=== PATIENT | female | born 1995 | race Hispanic/Latino ===

== ENCOUNTER 2023-11-15 01:11 | Emergency (ER) | payer MEDICAID, MEDICARE, SELFPAY ==
[~2023-11-15] VITALS: Ht 154.9 cm; Wt 72.4 kg
[2023-11-15] MEDS ORDERED: IBUP80TA PO (01:19)
[2023-11-15] MEDS ORDERED: ACET-683 PO (01:19)
[2023-11-15] MEDS ORDERED: MIGRTAB PO (01:19)
[2023-11-15] MEDS ORDERED: METOCLOPRAMIDE INJ 10MG/2ML VIAL IV ONE (06:30)
[2023-11-15] MEDS ORDERED: ACETAMINOPHEN *IV* 1,000 MG in IV 1 EA IV ONE (06:30)
[2023-11-15] MEDS ORDERED: NS 1,000 ML IV ONE (06:30)
[2023-11-15 07:02] LABS: BASO % 0.2 % (0.0-1.0); HEMATOCRIT 38.9 % (36.0-47.0); HEMOGLOBIN 13.2 g/dl (12.0-15.5); LYMPH # 0.9 10^3/uL (1.5-5.0); LYMPH % 7.4 % (24.0-44.0); MEAN CORPUSCULAR HEMOGLOBIN 33.2 pg (27.0-33.0); MEAN CORPUSCULAR HGB CONC 33.9 g/dl (32.0-36.5); MONO # 0.4 10^3/uL (0.0-0.8); MONO % 3.1 % (2.0-8.0); NEUTROPHILS # 11.4 10^3/uL (1.5-8.5); PLATELET COUNT, AUTOMATED 255 10^3/uL (150-450); RED BLOOD COUNT 3.97 10^6/uL (4.00-5.40); WHITE BLOOD COUNT 12.8 10^3/uL (4.0-10.0)
[2023-11-15 07:20] LABS: BLOOD UREA NITROGEN 10 MG/DL (9-23); CALCIUM LEVEL 8.5 MG/DL (8.5-10.1); CARBON DIOXIDE LEVEL 23 MMOL/L (20-31); CHLORIDE LEVEL 106 MMOL/L (98-107); CREATININE FOR GFR 0.65 MG/DL (0.55-1.30); GLOMERULAR FILTRATION RATE > 60.0 (>60); GLUCOSE, FASTING 107 MG/DL (60-100); POTASSIUM SERUM 4.2 MMOL/L (3.5-5.1); SODIUM LEVEL 135 MMOL/L (136-145)
[2023-11-15 07:25] LABS: RSV AMPLIFICATION NEGATIVE (NEGATIVE)
[2023-11-15 08:04] VITALS: BP 125/67; TEMP 98.5; O2SAT 98
[2023-11-15] MEDS ORDERED: KETOROLAC 30 MG/ML 1ML VIAL IV ONE (09:00)
== END 2023-11-15 08:14 | disposition home or self-care (01) ==
LOC: M ED 01:11
DX: G44.209 Tension-type headache, unspecified, not intractable (principal)
CPT/HCPCS: 80048; 84702; 85025; 87631; 96374; 96375; 99284; J0131; J1885; J2765

== ENCOUNTER → 2024-07-11 | Outpatient (REF) ==
[~2024-07-11] MED LIST: ACET-683 PO; IBUP80TA PO; MIGRTAB PO
== END ==
LOC: M EMP 13:13
PROVIDERS: ATTEND Family Medicine
DX: Z11.52 Encounter for screening for COVID-19 (principal)

== ENCOUNTER → 2024-07-26 | Outpatient (REF) | LOC: M EMP 07:54 | PROVIDERS: ATTEND Family Medicine | DX: Z11.52 Encounter for screening for COVID-19 (principal) ==

== ENCOUNTER 2025-11-01 08:32 | Emergency (ER) | payer MEDICAID, OTHER ==
[~2025-11-01] VITALS: Ht 157.5 cm; Wt 89.7 kg
[2025-11-01 09:09] LABS: BASO # 0.1 10^3/uL (0.0-0.2); BASO % 0.6 % (0.0-1.0); EOS # 0.5 10^3/uL (0.0-0.5); EOS % 5.6 % (0.0-3.0); LYMPH # 2.2 10^3/uL (1.5-5.0); LYMPH % 24.7 % (24.0-44.0); MONO # 0.6 10^3/uL (0.0-0.8); MONO % 6.3 % (2.0-8.0); NEUTROPHILS # 5.6 10^3/uL (1.5-8.5); NEUTROPHILS % 62.6 % (36.0-66.0); PLATELET COUNT, AUTOMATED 295 10^3/uL (150-450)
[2025-11-01 11:57] LABS: KETONE, URINE AUTO RFX NEGATIVE (NEGATIVE); LEUKOCYTE ESTERASE UR AUTO RFX NEGATIVE (NEGATIVE); MUCUS, URINE RFX SMALL (NEGATIVE); NITRITE, URINE AUTO RFX NEGATIVE (NEGATIVE); RBC, URINE AUTO RFX 2 /HPF (0-3); SQUAM EPITHELIAL CELL UR AURFX 0 /HPF (0-6); WBC, URINE AUTO RFX 0 /HPF (0-3)
[2025-11-01] MEDS ORDERED: CEPH500C PO (12:01)
[2025-11-01 12:26] VITALS: BP 110/58; TEMP 96.4; O2SAT 100
== END 2025-11-01 12:38 | disposition home or self-care (01) ==
LOC: M ED 08:32
DX: O23.41 Unspecified infection of urinary tract in pregnancy, first trimester (principal); Z79.1 Long term (current) use of non-steroidal anti-inflammatories (NSAID); Z79.2 Long term (current) use of antibiotics; Z79.899 Other long term (current) drug therapy; Z3A.01 Less than 8 weeks gestation of pregnancy

== ENCOUNTER → 2025-11-03 | Outpatient (CLI) | payer OTHER ==
[~2025-11-03] MED LIST changes: +CEPH500C PO
== END ==
LOC: M LAB 09:39
PROVIDERS: ATTEND Registered Nurse
DX: Z34.90 Encounter for supervision of normal pregnancy, unspecified, unspecified trimester (principal)

== ENCOUNTER → 2025-11-05 | Outpatient (CLI) | payer OTHER | LOC: M RAD 07:02 | PROVIDERS: ATTEND Registered Nurse | DX: Z34.91 Encounter for supervision of normal pregnancy, unspecified, first trimester (principal); Z3A.01 Less than 8 weeks gestation of pregnancy ==

== ENCOUNTER 2025-11-08 16:07 | Emergency (ER) | payer OTHER ==
[~2025-11-08] VITALS: Ht 157.5 cm; Wt 90.0 kg
[2025-11-08 16:35] LABS: BASO # 0.1 10^3/uL (0.0-0.2); BASO % 0.6 % (0.0-1.0); EOS # 0.6 10^3/uL (0.0-0.5); EOS % 5.8 % (0.0-3.0); LYMPH # 2.8 10^3/uL (1.5-5.0); LYMPH % 26.9 % (24.0-44.0); MONO # 0.6 10^3/uL (0.0-0.8); MONO % 5.5 % (2.0-8.0); NEUTROPHILS # 6.2 10^3/uL (1.5-8.5); NEUTROPHILS % 60.9 % (36.0-66.0); PLATELET COUNT, AUTOMATED 308 10^3/uL (150-450)
[2025-11-08 16:48] LABS: APPEARANCE, URINE CLEAR (CLEAR); BACTERIA, URINE AUTO 2+ (NEGATIVE); BILIRUBIN, URINE AUTO NEGATIVE (NEGATIVE); BLOOD, URINE BLOOD 2+ (NEGATIVE); GLUCOSE, URINE (UA) AUTO NEGATIVE (NEGATIVE); KETONE, URINE AUTO NEGATIVE (NEGATIVE); LEUKOCYTE ESTERASE, URINE AUTO NEGATIVE (NEGATIVE); NITRITE, URINE AUTO NEGATIVE (NEGATIVE); PROTEIN, URINE AUTO NEGATIVE (NEGATIVE); RBC, URINE AUTO 3 /HPF (0-3); SPECIFIC GRAVITY URINE AUTO 1.005 (1.002-1.035); SQUAMOUS EPITHELIAL CELL UR AU 1 /HPF (0-6); UROBILINOGEN, URINE AUTO 0.2 mg/dL (0.0-2.0); WBC, URINE AUTO 1 /HPF (0-3)
[2025-11-08 17:03] LABS: CALCIUM LEVEL 8.6 MG/DL (8.5-10.1); CARBON DIOXIDE LEVEL 27 MMOL/L (20-31); CHLORIDE LEVEL 103 MMOL/L (98-107); CREATININE FOR GFR 0.52 MG/DL (0.55-1.30); GLOMERULAR FILTRATION RATE > 90.0 (>60); POTASSIUM SERUM 3.6 MMOL/L (3.5-5.1); SODIUM LEVEL 138 MMOL/L (136-145)
[2025-11-08 19:58] VITALS: BP 105/65; TEMP 97.8; O2SAT 97
== END 2025-11-08 20:00 | disposition home or self-care (01) ==
LOC: M ED 16:07
DX: O02.1 Missed abortion (principal); N83.12 Corpus luteum cyst of left ovary; Z79.1 Long term (current) use of non-steroidal anti-inflammatories (NSAID); Z79.82 Long term (current) use of aspirin; Z79.899 Other long term (current) drug therapy; Z79.2 Long term (current) use of antibiotics

== ENCOUNTER → 2025-11-27 | Outpatient (CLI) | payer OTHER ==
[2025-11-27 14:03] LABS: FREE T4 1.13 NG/DL (0.89-1.76)
[2025-12-01 00:37] LABS: ANTI THROMBIN 3 FUNCT ACTIVITY 109 % normal (80-135)
[2025-12-02 12:04] LABS: DRVV SCREEN 37.6 SECONDS
[2025-12-02 12:09] LABS: PTT LUPUS TYPE ANTICOAG SCREEN 0.95 (0-1.20)
[2025-12-03 14:46] LABS: FACTOR V LEIDEN FOR MEDINET NEGATIVE
== END ==
LOC: M PLALAB 11:50
PROVIDERS: ATTEND Advanced Practice Midwife
DX: N96 Recurrent pregnancy loss (principal)